=== PATIENT | male | born 1975 | race Caucasian/White ===

== ENCOUNTER 2019-04-19 01:44 | Emergency (ER) | payer OTHER ==
--- NOTE | 2019-04-19 02:21 | ERPHSYRPT ---
- History of Present Illness Time Seen by Provider: 04/19/19 02:00 Source: patient Exam Limitations: clinical condition Patient Subjective Stated Complaint: Urinary retention Triage Nursing Assessment: Patient brought back to ED via EMS and transferred self to bed. Patient A+O X 3. Patient complains of urinary retention since 2199. Patient was at [facility] for emergency surgery to his hand after an incident earlier in the day. Patient had a f/c in during surgery and after removal he told the nurses he never urinated so he could go home. Patient states he has pubic pain 04/28. Physician History: PATIENT UNDER WENT RIGHT HAND SURGERY LAST NIGHT AT [facility], HAD SAUER CATHETER REMOVED PRIOR TO DISCHARGE. HAS PAIN IN TIP OF PENIS UNABLE TO URINATE SINCE DISCHARGE ASSOCIATED WITH ABDOMINAL DISTENTION. DENIES NAUSEA, FEVER OR URINARY SYMPTOMS. Timing/Duration: hour(s) (PAST 4 HOURS) Activites at Onset: none Quality: burning Onset Location: urethral Pain Radiation: none Severity of Pain-Max: moderate Severity of Pain-Current: moderate Modifying Factors: Improves With: urinating Prior abdominal problems: none Sexual intercourse history: non-contributory Allergies/Adverse Reactions: tramadol Allergy (Verified 04/19/19 01:49) Hx Tetanus, Diphtheria Vaccination/Date Given: No Hx Influenza Vaccination/Date Given: No Hx Pneumococcal Vaccination/Date Given: No Immunizations Up to Date: Yes - Past Medical History Pertinent Past Medical History: Yes Neurological History: No Pertinent History ENT History: No Pertinent History Cardiac History: No Pertinent History Respiratory History: Asthma, Bronchitis Endocrine Medical History: Hypoglycemia Musculoskeletal History: No Pertinent History, Other GI Medical History: GERD History: No Pertinent History Psycho-Social History: Anxiety, Attention Deficit Disorder, Depression, Panic Disorder Male Reproductive Disorders: No Pertinent History Other Medical History: herniated disc - Past Surgical History Past Surgical History: No Neuro Surgical History: No Pertinent History Cardiac: No Pertinent History Respiratory: No Pertinent History Gastrointestinal: No Pertinent History Genitourinary: No Pertinent History Musculoskeletal: Orthopedic Surgery Male Surgical History: No Pertinent History Other Surgical History: no surgeries - Social History Smoking Status: Former smoker Exposure to second hand smoke: Yes (occ.) Drug Use: marijuana Patient Lives Alone: No - Review of Systems Constitutional: No Fever, No Chills Eyes: No Symptoms Ears, Nose, & Throat: No Symptoms Respiratory: No Symptoms, No Cough, No Dyspnea Cardiac: No Symptoms, No Chest Pain, No Edema, No Syncope Abdominal/Gastrointestinal: No Symptoms, No Abdominal Pain, No Nausea, No Vomiting, No Diarrhea Genitourinary Symptoms: Urinary Retention, No Dysuria Musculoskeletal: No Symptoms, No Back Pain, No Neck Pain Skin: No Symptoms, No Rash Neurological: No Dizziness, No Focal Weakness, No Sensory Changes Psychological: No Symptoms Endocrine: No Symptoms All Other Systems: Reviewed and Negative - Nursing Vital Signs Nursing Vital Signs: Initial Vital Signs Temperature 98.0 F 04/19/19 01:50 Pulse Rate 110 H 04/19/19 01:50 Respiratory Rate 18 04/19/19 01:50 Blood Pressure 95/70 04/19/19 01:50 O2 Sat by Pulse Oximetry 100 04/19/19 01:50 Pain Scale Pain Intensity 8 - Physical Exam General Appearance: no apparent distress, alert Eye Exam: PERRL/EOMI Ears, Nose, Throat Exam: pharynx normal, moist mucous membranes Neck Exam: normal inspection, supple Respiratory Exam: normal breath sounds, lungs clear Cardiovascular Exam: regular rate/rhythm, No edema Gastrointestinal/Abdomen Exam: soft, normal bowel sounds, No tenderness ( SUPRAPUBIC DISTENTION AND TENDERNESS) Male Genital Exam: normal genitalia Back Exam: normal inspection, No CVA tenderness Extremity Exam: normal inspection, normal range of motion, No pedal edema Neurologic Exam: alert, oriented x 3, cooperative, sensation nml, No motor deficits Skin Exam: normal color, warm, dry, No rash SpO2 Interpretation: normal SpO2: 100 O2 Delivery: Room Air Ordered Tests: Active Orders 24 hr Category Date Time Status Sauer [Catheter-Godley Sauer] STAT Care 04/19/19 02:07 Active Urine Triage Profile Stat Lab 04/19/19 02:25 Uncollected - Progress Progress Note: 04/19/19 02:24 SAUER CATHETER INSERTION - Departure Departure Disposition: Home Clinical Impression: ACUTE URINARY RETENTION Condition: Stable Critical Care Time: No Referrals: PEYTON RUSSO MD [Primary Care Provider] - Additional Instructions: MAINTAIN SAUER WITH LEG BAG. FOLLOWUP WITH A UROLOGIST DR DE LA FUENTE CALL TODAY TO SCHEDULE APPOINTMENT.
[2019-04-19 02:46] VITALS: BP 116/84; PULSE 98
[2019-04-19 03:02] VITALS: O2SAT 100
[2019-04-19 03:17] LABS: Barbiturate,Urine NEGATIVE (NEGATIVE); Benzodiazepine,Urine POSITIVE (NEGATIVE); Cocaine,Urine NEGATIVE (NEGATIVE); Methadone,Urine NEGATIVE (NEGATIVE); Opiate,Urine NEGATIVE (NEGATIVE); PCP,Urine NEGATIVE (NEGATIVE); THC,Urine NEGATIVE (NEGATIVE)
[2019-04-19 03:45] LABS: Amphetamine,Urine POSITIVE (NEGATIVE)
== END 2019-04-19 03:55 | disposition home or self-care (01) ==
LOC: ED 01:44
DX: R33.9 Retention of urine, unspecified (principal)
CPT/HCPCS: 51702; 80307; 99284